=== PATIENT | female | born 1940 | race Caucasian/White ===

== ENCOUNTER → 2016-09-02 | Day surgery (SDC) | payer MEDICARE, BC ==
[~2016-09-02] MED LIST: ARIMIDEX1 MG PO; ARTIFICIAL TEAR1 DRP OP; B6100 MG PO; CENTRUM SILVER PO; CENTRUM SILVER1 EAC3 PO; CIPRO PO; CITRACAL + D CA1 TA1 PO; CRANBERRY400 MG PO; FAMVIR500 M1 PO; LISINOPRIL PO; LISINOPRIL10 MG PO; MULTI-VITAMIN1 EAC1 PO; OXYGEN INH; PERCOCET5/325 PO; PREDNISONE PO; PROTONIX PO; PYRIDIUM PO; SYMBICORT INH; VESICARE PO; VITAMIN B-1 PO; VITAMIN B-6 PO; ZOFRAN PO
--- NOTE | ~2016-09-02 | OR ---
Unit #: [id number] #: [id number] Patient: FABIOLA ZENDEJAS [id number] [address] [place], [place] [address] [id number] O MR#: [id number] NAME: FABIOLA ZENDEJAS ROOM: Date of Procedure: 09/02/2016 Admission Date: 09/02/2016 Surgeon: Juve Lepe M.D. : 1940 Attending Physician: Juve Lepe M.D. Referring Physician: Juve Lepe M.D. Primary Care Physician: Kurt Mtz M.D. OPERATIVE REPORT PREOPERATIVE DIAGNOSIS Left lower quadrant pain. POSTOPERATIVE DIAGNOSIS Left lower quadrant pain. PROCEDURES PERFORMED 1. Colonoscopy to cecum. 2. Biopsy of descending colon. 3. Polypectomy with electrocautery snare at 20 cm. ANESTHESIA Monitored anesthesia care. FINDINGS The patient was found to have extensive sigmoid diverticulosis over a 15 to 20 cm segment of the sigmoid colon. Mild diffuse colitis throughout the colon. A 4 to 5 mm polyp was excised with electrocautery snare at 20 cm with good hemostasis. SPECIMENS Sent to pathology. COMPLICATIONS None apparent. CONDITION The patient tolerated the procedure well. INDICATIONS FOR PROCEDURE The patient is a 76-year-old white female, who presented with left lower quadrant pain and discomfort. She had a CT scan performed when she was admitted to [facility], which revealed some inflammatory changes of the sigmoid colon. She presents at this time for evaluation by colonoscopy, now that her symptoms have resolved. DESCRIPTION OF PROCEDURE After obtaining informed consent, the patient was brought to the endoscopy suite and after adequate monitored anesthesia care, had the colonoscope placed through the anus and slowly advanced to the level of cecum without difficulty with the lumen always in view. The cecum was normal as was the ileocecal valve. Beginning just beyond the cecum, there were very mild Unit #: [id number] #: [id number] Patient: FABIOLA ZENDEJAS patchy areas of colitis throughout the colon. A biopsy was obtained from the descending colon for pathologic evaluation. This was a guest service representative area. Other than this, there was no abnormality seen in the ascending colon, hepatic flexure, transverse colon, splenic flexure, or descending colon. In the distal descending colon and sigmoid colon over 15 to 20 cm segment, there was fairly extensive sigmoid diverticular disease. At 20 cm, there was a small polyp that was excised completely with electrocautery snare, retrieved with a mucus trap, and sent to pathology. There was good hemostasis. The remaining portion of the rectosigmoid and rectum were all within normal limits. On retroflexing in the rectum to the anorectal junction, the patient had no significant abnormality. The scope was removed without difficulty. On digital examination, there was good sphincter tone. No masses palpable. The patient went from the endoscopy suite to the recovery area in stable condition. RECOMMENDATIONS Diverticular sheet given. High-fiber diet, lots of liquids, tucks or wipes p.r.n. Call Friday for pathology. Dictated by... Vandana Damon/teri TD: 09/02/2016 22:28 JOB #: [id number] CC: Psychiatric OPERATIVE REPORT X Juve Lepe MD X PROCEDURE OPERATIVE NOTE
== END | disposition home or self-care (01) ==
LOC: COPS 09:55
DX: K57.30 Diverticulosis of large intestine without perforation or abscess without bleeding (principal); K52.9 Noninfective gastroenteritis and colitis, unspecified; D12.5 Benign neoplasm of sigmoid colon; J44.9 Chronic obstructive pulmonary disease, unspecified; I10 Essential (primary) hypertension; Z79.899 Other long term (current) drug therapy; F17.200 Nicotine dependence, unspecified, uncomplicated; Z87.440 Personal history of urinary (tract) infections; Z85.3 Personal history of malignant neoplasm of breast; Z98.51 Tubal ligation status; Z98.890 Other specified postprocedural states; Z88.0 Allergy status to penicillin; Z88.2 Allergy status to sulfonamides; Z88.6 Allergy status to analgesic agent
CPT/HCPCS: 88305

== ENCOUNTER → 2017-02-28 | Outpatient (CLI) | payer MEDICARE, BC ==
--- NOTE | ~2017-02-28 | CT4 ---
[facility] A Service of [facility] & [facility] RADIOLOGY TEXT RESULTS PATIENT: FABIOLA ZENDEJAS [facility] UN[facility] #: [id number] AGE: [address]: Kurt Mtz MD SEX: F ORDER DR: [id number] [facility] [place]. [place], [place] [address] [id number] O MR#: [id number] [facility] #: [id number] NAME: FABIOLA ZENDEJAS : 1940 SEX: F STUDY DATE/TIME: 02/28/2017 14:10 UNIT: CCAT ROOM: STUDY DESCRIPTION: CT Abd and Pelv Wo Cont Attending Physician: Kurt Mtz M.D. Referring Physician: Kurt Mtz M.D. Ordering Physician: Kurt Mtz M.D. Primary Care Physician: Kurt Mtz M.D. MEDICAL IMAGING REPORT This report is preliminary unless electronic signature is present EXAM CT abdomen and pelvis without contrast Date: 02/28/2017 HISTORY A 77-year-old female left lower quadrant abdominal pain which again 02/24/2017. History of right mastectomy. Breast cancer. COMPARISON CT abdomen and pelvis without contrast 08/09/2016. PROCEDURE 3 mm noncontrast axial images through the abdomen and pelvis. Enteric contrast was not administered. Sagittal and coronal reformed images were obtained. This CT exam was performed with one or more of the following radiation dose reduction techniques: automatic exposure control, adjustment of mA and/or kV according to patient size, and iterative reconstruction. FINDINGS Abdomen findings: Emphysematous changes are present in the lung bases. No basilar airspace disease or suspicious noncalcified nodules identified. The liver, gallbladder, spleen, pancreas, adrenals and kidneys have normal noncontrast appearance. Appendectomy changes. Mild to moderate ascending colonic stool burden. No evidence of high-grade bowel obstruction. Pelvis: Long-segment wall thickening of the [id number] sigmoid colon with adjacent mild pericolonic fat stranding. Diverticular changes are [facility] A Service of [facility] & [facility] RADIOLOGY TEXT RESULTS PATIENT: FABIOLA ZENDEJAS LOCATION: [facility] : 42 UNIT #: [id number] AGE: [address]: Kurt Mtz MD SEX: F ORDER DR: present in the same location. Findings are thought to represent a focal acute diverticulitis. No evidence of gross perforation or abscess. Small calcified uterine fibroids. Urinary bladder and rectum are within normal limits. Grade 1 anterolisthesis L4 upon L5 with moderate diminished disc height. IMPRESSION 1. Acute sigmoid diverticulitis without evidence of gross perforation or abscess. 2. I spoke with Dr. Mtz regarding these findings on 02/28/2017 at 15:35. 3. Appendectomy. 4. Emphysema. Dictated by... Alyssa Hauser M.D. THIS IS AN ELECTRONICALLY VERIFIED REPORT Alyssa Hauser M.D. at 03/06/2017 8:37 AM ELLE/memo TD: 02/28/2017 22:17 JOB #: [id number] MEDICAL IMAGING REPORT Page 1 of 1 COPY
== END | disposition home or self-care (01) ==
LOC: CCAT 13:09
DX: R10.32 Left lower quadrant pain (principal); K57.30 Diverticulosis of large intestine without perforation or abscess without bleeding; J43.9 Emphysema, unspecified; Z90.49 Acquired absence of other specified parts of digestive tract
CPT/HCPCS: 74176